=== PATIENT | male | born 1970 | race Caucasian/White ===

== ENCOUNTER 2021-04-22 17:07 | Emergency (ER) | payer OTHER ==
[~2021-04-22] VITALS: Ht 177.8 cm; Wt 72.6 kg
[2021-04-22 17:30] VITALS: BP 140/89
== END 2021-04-22 17:35 | disposition left against medical advice (07) ==
LOC: ER 17:07
DX: R10.9 Unspecified abdominal pain (principal); Z53.21 Procedure and treatment not carried out due to patient leaving prior to being seen by health care provider